=== PATIENT | male | born 1935 | race Caucasian/White ===

== ENCOUNTER → 2021-03-19 | Outpatient (CLI) | payer MEDICARE, OTHER ==
[~2021-03-19] MED LIST: ASPIRIN E.C. 8181 MG PO; CARDURA 2MG2 MG PO; CELEBREX 200MG200 MG PO; CEPHALEXIN500 M1 PO; CITRACAL + D CA1 TAB PO; COLACE 100100 MG/CAP PO; COZAAR100 MG PO; GLUCOPHAGE500 MG/TAB PO; HCTZ 25MG TAB25 MG PO; K-TAB20 PO; MAGNESIUM500 MG PO; MELATONIN5 M1 PO; MULTIPLE VITAMI1 T14 PO; NEXIUM 40MG40 MG PO; NORCO 325 MG-7.1 TAB PO; NORVASC 5MG5 MG/TAB PO; OMEGA-3 FISH1000 MG PO; OSTEO-BI-FLEX 21 TAB PO; PROBIOTICA100 Milli1 PO; SINGULAIR 110 MG/TAB PO; TIAZAC300 MG PO; ULTRAM 50MG TAB50 MG PO; ZESTRIL 20MG TA20 MG PO; ZOCOR 10MG10 MG PO
== END ==
LOC: ZCOL.LAB 15:33
DX: Z20.822 Contact with and (suspected) exposure to COVID-19 (principal)